=== PATIENT | male | born 1930 | race Caucasian/White ===

== ENCOUNTER 2017-05-31 04:16 | Inpatient (IN) | payer OTHER, MEDICARE ==
[~2017-05-31] VITALS: Ht 170.2 cm; Wt 79.0 kg
--- NOTE | 2017-05-31 04:27 | ED SYNCOPE COMPLAINT ---
See Addendum History of Present Illness General Chief Complaint: Fall Stated Complaint: FALLS Source: patient, family, EMS Exam Limitations: no limitations Vital Signs & Intake/Output Vital Signs & Intake/Output Vital Signs Date Time Temp Pulse Resp B/P B/P Pulse O2 O2 Flow FiO2 Mean Ox Delivery Rate 05/31 0941 97.5 62 16 120/64 100 Room Air 05/31 0617 97.7 61 18 127/60 100 Room Air 05/31 0432 97 Room Air 05/31 0420 97.6 69 20 157/74 99 Room Air Allergies Coded Allergies: Penicillins (Severe, ANAPHYLAXIS 05/31/17) Sulfa (Sulfonamide Antibiotics) (Severe, ANAPHYLAXIS 05/31/17) procaine (Severe, ANAPHYLAXIS 05/31/17) clarithromycin (From BIAXIN) (Intermediate, ANAPHYLAXIS 05/31/17) levofloxacin (From LEVAQUIN) (Intermediate, ANAPHYLAXIS 05/31/17) prochlorperazine (From COMPAZINE) (ANAPHYLAXIS 05/31/17) Reconcile Medications Aspirin (Ecotrin*) 81 MG TABLET.DR 1 TAB PO DAILY HEART HEALTH (Reported) Biotin 1,000 MCG TAB.CHEW 1,000 MCG PO DAILY VITAMIN SUPPORT (Reported) Calcitriol 0.25 MCG CAPSULE 1 CAP PO DAILY VITAMIN SUPPORT (Reported) Esomeprazole (Nexium) 40 MG CAPSULE.DR 1 CAP PO DAILY ACID REFLUX (Reported) Finasteride 5 MG TABLET 1 TAB PO DAILY BLADDER HEALTH (Reported) Moexipril HCl 7.5 MG TABLET HIGH BLOOD PRESSURE (Reported) Psyllium Husk (Metamucil) (Unknown Strength) CAPSULE (Unknown Dose) BOWEL HEALTH (Reported) Rosuvastatin Calcium (Crestor) 10 MG TABLET 1 TAB PO DAILY HIGH CHOLESTROL ( Reported) Tamsulosin HCl 0.4 MG CAP.ER.24H 1 CAP PO DAILY BLADDER HEALTH (Reported) Ubidecarenone (Co Q-10) 100 MG CAPSULE 100 MG PO DAILY VITAMIN SUPPORT ( Reported) Triage Note: JAMEY FROM [facility]. PT HAD COLONOSCOPY LAST WEDNESDAY AND HAS FALLEN FOUR TIMES SINCE. PT REPORTS THAT HE GOT UP TO USE BATHROOM AND " THE NEXT THING I KNEW I WAS ON THE FLOOR". PT DENEIS CP/SOB OR PAIN IN GENERAL. PT HAS SMALL SKIN TEAR TO LEFT HAND. DR PANTOJA IN ROOM. Triage Nurses Notes Reviewed? yes HPI: Patient had a colonoscopy on Wednesday with a polypectomy. Patient has been feeling very weak and fatigue since then. Patient has had 4 syncopal episodes since getting home on Wednesday. This morning patient remembers getting up to go to the bathroom and then feeling very lightheaded. His states that he had a witnessed syncopal episode and he fell and hit his head on the floor. states that he was unresponsive for a few minutes. Patient denies any chest pain or palpitations. There is no nausea or vomiting. states that this is the longest syncopal episode that he's had so far so she became concerned and brought him in for evaluation. (Lázaro NGUYỄN,Jazmyne Al) Past History Travel History Traveled to [place] past 21 day No Medical History Any Pertinent Medical History? see below for history Cardiovascular: hypertension, hyperlipidemia Gastrointestinal: GERD Renal: STAGE 3 RENAL DISEASE Surgical History Surgical History: non-contributory Psychosocial History Tobacco Use: Never used ETOH Use: denies use Illicit Drug Use: denies illicit drug use Family History Hx Contributory? No (Lázaro NGUYỄN,Jazmyne Al) Review of Systems Review of Systems Constitutional: Reports: see HPI, weakness. EENTM: Reports: no symptoms. Respiratory: Reports: no symptoms. Cardiovascular: Reports: no symptoms. GI: Reports: no symptoms. Genitourinary: Reports: no symptoms. Musculoskeletal: Reports: no symptoms. Skin: Reports: no symptoms. Neurological/Psychological: Reports: no symptoms. All Other Systems: Reviewed and Negative (Lázaro NGUYỄN,Jazmyne Al) Physical Exam Physical Exam General Appearance: well developed/nourished, alert, awake, anxious, mild distress Head: atraumatic, normal appearance Eyes: Bilateral: PERRL, EOMI. Ears, Nose, Throat: normal pharynx, DRY MUCUS MEMBRANES Neck: normal inspection, supple, full range of motion, no midline tenderness Respiratory: normal breath sounds, chest non-tender, no respiratory distress, lungs clear Cardiovascular: regular rate/rhythm, normal peripheral pulses, systolic murmur Gastrointestinal: normal bowel sounds, soft, non-tender, no organomegaly Back: normal inspection, normal range of motion Extremities: normal inspection, normal capillary refill, normal range of motion, no edema Psychiatric: awake, alert, oriented x 3 Cranial Nerves: normal hearing, normal speech, PERRL Coordination/Gait: normal finger to nose Motor/Sensory: no motor/sensory deficits Skin: intact, normal color, warm/dry Core Measures ACS in differential dx? Yes CVA/TIA Diagnosis: No Sepsis Present: No Sepsis Focused Exam Completed? No (Lázaro NGUYỄN,Jazmyne Al) Progress Differential Diagnosis: AMI, drug induced syncope, orthostatic syncope, pulmonary embolus, sick sinus syndrome, vasodepressor syncope, ventricular tach/ fib Plan of Care: Orders Procedure Date/time Status Clear Liquid Diet 05/31 D Active Misc Message 05/31 112 Active ED Holding Orders 05/31 1126 Active Vital Signs 05/31 1126 Active Code Status 05/[address] in observation 05/31 112 Active Straight Cath 05/31 112 Active Add-on Test (ER Only) 05/31 0617 Active LACTIC ACID 05/31 0439 Complete Telemetry/Broadcast Chief Engineer 05/31 425 Active URINALYSIS 05/31 042 Active TROPONIN LEVEL 05/31 042 Complete MAGNESIUM 05/31 425 Complete COMPREHENSIVE METABOLIC PANEL 05/31 425 Complete CBC WITHOUT DIFFERENTIAL 05/31 425 Complete EKG 05/31 0421 Active Laboratory Tests 05/31/17 0916: Lactic Acid Cancelled 05/31/17 0616: Lactic Acid Cancelled 05/31/17 0439: Anion Gap 13, Estimated GFR 26 L, BUN/Creatinine Ratio 17.9, Glucose 115 H, Lactic Acid 0.9, Calcium 11.3 H, Magnesium 1.6, Total Bilirubin 0.5, AST 11 L, ALT 24, Alkaline Phosphatase 37, Troponin I < 0.01, Total Protein 6.1 L, Albumin 3.8, Globulin 2.3, Albumin/Globulin Ratio 1.7, CBC w Diff NO MAN DIFF REQ, RBC 3.89 L, MCV 89.1, MCH 29.7, MCHC 33.3, RDW 14.4, MPV 8.1, Gran % 64.0, Lymphocytes % 25.7, Monocytes % 6.5, Eosinophils % 3.4, Basophils % 0.4, Absolute Granulocytes 5.0, Absolute Lymphocytes 2.0, Absolute Monocytes 0.5, Absolute Eosinophils 0.3, Absolute Basophils 0 Diagnostic Imaging: Viewed by Me: Radiology Read, CT Scan. Discussed w/RAD: Radiology Read, CT Scan. Radiology Impression: PATIENT: KAELYN BARFIELD PRESENT AGE: 86 PATIENT ACCOUNT NO: [id number] : 32 LOCATION: ER ORDERING PHYSICIAN: Jazmyne Pantoja MD SERVICE DATE: 05/31/17 EXAM TYPE: CAT - CT CERV SPINE WO IV CONTRAST; CT HEAD WO IV CONTRAST EXAMINATIONS: CT HEAD WITHOUT CONTRAST AND CT CERVICAL SPINE WITHOUT CONTRAST CLINICAL INFORMATION: Pain after fall. Trauma to head and neck. COMPARISON: None. TECHNIQUE: Contiguous helical images of the brain were obtained without IV contrast. Contiguous helical images of the cervical spine were obtained without IV contrast. Multiplanar reconstructions were performed. DLP: 984 mGy-cm. FINDINGS: There are no pathologic extra-axial fluid collections. The lateral, third, fourth ventricles are prominent, though age-appropriate and concordant with the appearance of the sulci. There is no evidence for acute intraparenchymal hemorrhage or infarct. There is neither mass nor mass effect. There is no shift of midline structures. There is mild ethmoid sinus opacification and soft tissue opacification within the sphenoid sinus which could correspond to a mucus retention cyst or polyp The paranasal sinuses and mastoid air cells are otherwise clear. There are no osseous lesions. The cervical vertebra are in normal alignment. Disc heights and vertebral heights are well-preserved. There are no fractures. There is no prevertebral soft tissue swelling. There is no cervical lymphadenopathy. The visualized lung apices are clear. IMPRESSION: No evidence for acute intracranial injury. Age-appropriate appearance of the brain. Paranasal sinus disease as stated above. No evidence for acute injury to the cervical spine. DICTATED BY: Jose Michael MD DATE/TIME DICTATED:05/31/17506 NURSING CARE PARTNER:AVILA DATE/TIME TRANSCRIBED:506 CONFIDENTIAL, DO NOT COPY WITHOUT APPROPRIATE AUTHORIZATION. < Electronically signed in Other Vendor System> SIGNED BY: Jose Michael MD 05/31/17 1148 CXR Impression: PATIENT: KAELYN BARFIELD PRESENT AGE: 86 PATIENT ACCOUNT NO: [id number] : 32 LOCATION: [facility] ORDERING PHYSICIAN: Jazmyne Pantoja MD SERVICE DATE: 05/31/17 EXAM TYPE: RAD - XRY-PORTABLE CHEST XRAY EXAMINATION: CHEST 1 VIEW CLINICAL INFORMATION: Chest pain. COMPARISON: None. TECHNIQUE: An AP view of the chest is provided. FINDINGS : The cardiac silhouette is not enlarged. The mediastinal and hilar contours are unremarkable. There are neither pleural effusions nor pneumothoraces. There are no consolidations. There is elevation to the right hemidiaphragm with mild right lower lobe atelectasis. The osseous structures are unremarkable. IMPRESSION: No consolidations. Mild atelectasis at the right lung base. DICTATED BY: Jose Michael MD DATE/TIME DICTATED:05/31/17506 NURSING CARE PARTNER:AVILA DATE/TIME TRANSCRIBED:05/31/17506 CONFIDENTIAL, DO NOT COPY WITHOUT APPROPRIATE AUTHORIZATION. <Electronically signed in Other Vendor System> SIGNED BY: Jose Michael MD 05/31/17 0511 Pre-Hospital EKG: BIFASICULAR BLOCK Initial ED EKG: BIFASICULAR BLOCK, NO OLD TO COMPARE Rhythm Strip: normal sinus rhythm Hand-Off Endorsed To: Efrain Nelson MD Endorsed Time: 710 Pending: CT (Jazmyne Pantoja MD) Comments: 05/31/17 07:10 patient signed out to me by Dr. Pantoja at shift price changer. 05/31/2017 10:49:36 AM per md trust manager assistant, prelim: diverticular disease of colon, mild pericolonic fat stranding, mid to prox sigmoid, findings could be early diverticulitis or colitis, clinical correlation. filling defect in duodenum, question polyp, ca in bladder, question bladder stones. 05/31/2017 11:13:10 AM I have updated Dr. Xie on the formal reading now posted to the system. He feels that the patient's possible early diverticulitis can be treated with oral antibiotics and no change in the previous care plan for observation stay necessary. (Efrain Nelson MD) Departure Departure Disposition: STILL A PATIENT Condition: Stable Departure Forms: Customer Survey General Discharge Information Observation Note Spoke With: Jose Xie MD Physician Advisor Notified: JAZMYNE PANTOJA MD Place Patient In: Non-ED OBS Care Area Rationale for Observation: My rational for observation is as follows [TELE OBS, SERIAL ENZYMES, IV HYDRATION, CARDIOLOGY CONSULTATION]. (Jazmyne Pantoja MD) Departure Clinical Impression Primary Impression: Syncope Qualifiers: Syncope type: unspecified Qualified Code: R55 - Syncope and collapse Secondary Impressions: Lower abdominal pain, unspecified (Leslie NGUYỄN,Efrain Fry)
[2017-05-31] MEDS ORDERED: NEXIUM40 M1 PO (04:45)
[2017-05-31] MEDS ORDERED: CRESTOR10 M1 PO (04:46)
[2017-05-31] MEDS ORDERED: MOEXIPRIL HCL7.5 MG PO (04:46)
[2017-05-31] MEDS ORDERED: FINASTERIDE5 M1 PO (04:48)
[2017-05-31] MEDS ORDERED: TAMSULOSIN HCL0.4 M1 PO (04:48)
[2017-05-31] MEDS ORDERED: CALCITRIOL0.25 MC1 PO (04:49)
[2017-05-31] MEDS ORDERED: CO Q-10100 MG PO (04:50)
[2017-05-31] MEDS ORDERED: ASPIRIN EC81 M1 PO (04:51)
[2017-05-31] MEDS ORDERED: BIOTIN1000 MC1 PO (04:52)
[2017-05-31] MEDS ORDERED: METAMUCIL0.4 GM PO (04:52)
[2017-05-31 04:53] LABS: ABSOLUTE BASOPHIL COUNT 0 /CUMM (0.0-0.2); ABSOLUTE EOSINOPHIL COUNT 0.3 /CUMM (0.0-0.7); ABSOLUTE MONOCYTE COUNT 0.5 /CUMM (0.10-0.60); BASOPHIL % 0.4 % (0.0-2.0); EOSINOPHIL % 3.4 % (0-5); HEMATOCRIT 34.7 % (42-52); MEAN CORPUSCULAR HGB 29.7 PG (27.0-31.0); MEAN CORPUSCULAR HGB CONC 33.3 G/DL (33.0-37.0); MEAN CORPUSCULAR VOLUME 89.1 FL (80.0-94.0); MEAN PLATELET VOLUME 8.1 FL (7.4-10.4); PLATELET COUNT 252 /CUMM (130-400); RBC DISTRIBUTION WIDTH 14.4 % (11.5-14.5); RED BLOOD CELL CT 3.89 /CUMM (4.70-6.10); WHITE BLOOD CELL COUNT 7.9 /CUMM (4.8-10.8)
--- NOTE | 2017-05-31 05:11 | RADIOLOGY REPORT ---
EXAMINATION: CHEST 1 VIEW CLINICAL INFORMATION: Chest pain. COMPARISON: None. TECHNIQUE: An AP view of the chest is provided. FINDINGS: The cardiac silhouette is not enlarged. The mediastinal and hilar contours are unremarkable. There are neither pleural effusions nor pneumothoraces. There are no consolidations. There is elevation to the right hemidiaphragm with mild right lower lobe atelectasis. The osseous structures are unremarkable. IMPRESSION: No consolidations. Mild atelectasis at the right lung base.
--- NOTE | 2017-05-31 05:30 | CT SCAN REPORT ---
EXAMINATIONS: CT HEAD WITHOUT CONTRAST AND CT CERVICAL SPINE WITHOUT CONTRAST CLINICAL INFORMATION: Pain after fall. Trauma to head and neck. COMPARISON: None. TECHNIQUE: Contiguous helical images of the brain were obtained without IV contrast. Contiguous helical images of the cervical spine were obtained without IV contrast. Multiplanar reconstructions were performed. DLP: 984 mGy-cm. FINDINGS: There are no pathologic extra-axial fluid collections. The lateral, third, fourth ventricles are prominent, though age-appropriate and concordant with the appearance of the sulci. There is no evidence for acute intraparenchymal hemorrhage or infarct. There is neither mass nor mass effect. There is no shift of midline structures. There is mild ethmoid sinus opacification and soft tissue opacification within the sphenoid sinus which could correspond to a mucus retention cyst or polyp The paranasal sinuses and mastoid air cells are otherwise clear. There are no osseous lesions. The cervical vertebra are in normal alignment. Disc heights and vertebral heights are well-preserved. There are no fractures. There is no prevertebral soft tissue swelling. There is no cervical lymphadenopathy. The visualized lung apices are clear. IMPRESSION: No evidence for acute intracranial injury. Age-appropriate appearance of the brain. Paranasal sinus disease as stated above. No evidence for acute injury to the cervical spine.
--- NOTE | 2017-05-31 10:56 | CT SCAN REPORT ---
EXAMINATION: CT ABDOMEN AND PELVIS WITH CONTRAST CLINICAL INFORMATION: Abdominal pain, recent colonoscopy and polypectomy. COMPARISON: None TECHNIQUE: Multidetector volumetric imaging was performed from the superior aspect of the liver through the pubic symphysis following administration of oral contrast. Sagittal and coronal reformatted images were obtained on the technologist's workstation. DLP: 448.63 mGy-cm FINDINGS: LUNG BASES: There is elevation of the right diaphragm with adjacent atelectasis of the pulmonary parenchyma. No pleural effusion. LIVER, GALLBLADDER, AND BILIARY TREE: The liver is normal in size, shape, and attenuation. There is a 1.1 cm hypodense lesion at the dome of liver with adjacent calcification, likely a hepatic granuloma. No biliary ductal dilatation is present. The gallbladder is absent, likely due to prior cholecystectomy. PANCREAS: Unremarkable SPLEEN: Unremarkable ADRENAL GLANDS: Unremarkable KIDNEYS AND URETERS: The kidneys are normal in size, shape, and attenuation. No hydronephrosis, hydroureter, or calculi seen. There are small, bilateral hypodense renal cortical lesions. The largest one measures about 1.7 cm and is located in the lower pole of the left kidney. The density of the largest one is about 8 Hounsfield units and represents a renal cyst. No perinephric stranding. BLADDER: The urinary bladder is slightly over-distended. There are 2 adjacent 2-3 mm calcific densities on the right side of bladder base, which could represent bladder stones. The finding is better seen on axial image 693 from series 3 and sagittal image 69. GASTROINTESTINAL TRACT: A moderate-sized hiatal hernia which contains the oral contrast is noted. The stomach is mildly distended and unremarkable. There is a 1.1 cm soft tissue density causing filling defect in the C portion of the duodenum, better seen on coronal image 51 and axial image 250 from series 3. The small bowel loops are not dilated. The colon is not dilated. Diverticular disease of the sigmoid colon and left colon noted. There is mild pericolonic fat stranding in the mid sigmoid colon, better seen on coronal image 31. Axial image 491 from series 3 and sagittal image 67. There are adjacent diverticuli, however no abnormal thickening of the wall of colon noted. Findings could represent changes of early acute diverticulitis/colitis. No free air or free fluid in the abdomen or pelvis. ABDOMINAL WALL: No significant hernia is appreciated. LYMPH NODES: Normal. VASCULAR: Atherosclerotic calcifications of the abdominal aorta noted. No aneurysmal dilatation. PELVIC VISCERA: The prostate and seminal vesicles are unremarkable. OSSEOUS STRUCTURES: No aggressive bony lesions or acute bone fracture. IMPRESSION: Diverticular disease of the sigmoid colon and descending colon noted. Mild pericolonic fat stranding in the region of the proximal to mid sigmoid colon without definite abnormal wall thickening noted. Findings could represent changes of early acute diverticulitis/colitis. Clinical correlation is suggested. No free air or fluid in the abdomen or pelvis. Filling defect in the C portion of the duodenum could represent polyp. Clinical correlation is suggested. Small calcific densities in the urinary bladder could represent urinary stones. This can be further evaluated by ultrasound of the full bladder if clinically indicated.
--- NOTE | 2017-05-31 13:00 | History & Physical ---
General Information and [facility] MD Statement: I have seen and personally examined KAELYN BARFIELD and documented this H&P. The patient is a 86 year old M who presented with a patient stated chief complaint of [fall]. Source of Information: patient, family Exam Limitations: no limitations History of Present Illness: Patient is an 86-year-old male BIBA from home, after episode of falls. According to the patient, he had colonoscopy preparation on , and afterwards he was very weak and underwent colonoscopy on Wednesday morning. After colonoscopy he had 4 episodes of fall, and most of the fall happened when he started urination. According to him he has hesitation and delay in start and sometimes he need to strain while urination. In the past he was told to have TURP but he refused for it. He denies for any nausea, vomiting, palpitation, headache, chest pain, shortness of breath before and loss of consciousness afterward. Today in the morning when he fell, he hit his head and the back of the neck, and become an unaware of surrounding for around 5 minutes. According to the he was having difficulty in breathing, drooling of saliva and was not responding for a couple of minutes that is why she called 911. He was staining the urination but not sure was it due to loss of control or he urinate. Of note patient is undergoing regular colonoscopy every 3 years, because he was found to have 1 polyp though it was not malignant. After his bilateral knee replacement in April 2016 he has tendency to fall on the right side, and which got worst after his colonoscopy preparation. He denies for using any cane/walker as a baseline. 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, right-sided dry History of diverticulitis Personal history -lives at home, able to do all his daily activity without any assistance, does not use cane or walker, quit alcohol 40-50 years, quit smoking 1969, denies illicit drug abuse Surgical history - history of bilateral knee replacement in April 2016 Cholecystectomy Appendicectomy History of sinus polypectomy Family history - Mother -history of renal cancer Father of heart attack PCP-Arsenio Crenshaw MD Gastroenterology - Efrain Spangler Allergies/Medications Allergies: Coded Allergies: Penicillins (Severe, ANAPHYLAXIS 05/31/17) Sulfa (Sulfonamide Antibiotics) (Severe, chest pain 05/31/17) procaine (Severe, ANAPHYLAXIS 05/31/17) clarithromycin (From BIAXIN) (Intermediate, COUGHING/GI upset 05/31/17) after he had paralysis of right side of diahragm levofloxacin (From LEVAQUIN) (Intermediate, ANAPHYLAXIS 05/31/17) prochlorperazine (From COMPAZINE) (ANAPHYLAXIS 05/31/17) Home Med list Aspirin (Ecotrin*) 81 MG TABLET.DR 1 TAB PO DAILY HEART HEALTH (Reported) Biotin 1,000 MCG TAB.CHEW 1,000 MCG PO DAILY VITAMIN SUPPORT (Reported) Calcitriol 0.25 MCG CAPSULE 1 CAP PO DAILY VITAMIN SUPPORT (Reported) Esomeprazole (Nexium) 40 MG CAPSULE.DR 1 CAP PO DAILY ACID REFLUX (Reported) Finasteride 5 MG TABLET 1 TAB PO DAILY BLADDER HEALTH (Reported) Moexipril HCl 7.5 MG TABLET HIGH BLOOD PRESSURE (Reported) Psyllium Husk (Metamucil) (Unknown Strength) CAPSULE (Unknown Dose) BOWEL HEALTH (Reported) Rosuvastatin Calcium (Crestor) 10 MG TABLET 1 TAB PO DAILY HIGH CHOLESTROL ( Reported) Tamsulosin HCl 0.4 MG CAP.ER.24H 1 CAP PO DAILY BLADDER HEALTH (Reported) Ubidecarenone (Co Q-10) 100 MG CAPSULE 100 MG PO DAILY VITAMIN SUPPORT ( Reported) Past History Travel History Traveled to [place] past 21 day No Medical History Neurological: NONE EENT: macular degeneration Cardiovascular: hypertension, hyperlipidemia Respiratory: NONE Gastrointestinal: GERD Hepatic: NONE Renal: STAGE 3 RENAL DISEASE Musculoskeletal: falls, osteoarthritis Psychiatric: NONE Endocrine: NONE Blood Disorders: NONE Cancer(s): NONE Surgical History Surgical History: non-contributory Past Family/Social History Family History Relations & Conditions if any MOTHER ( of renal cancer). FATHER ( of OR). Psychosocial History ETOH Use: denies use Illicit Drug Use: denies illicit drug use Review of Systems Review of Systems Constitutional: Denies: no symptoms. Exam & Diagnostic Data Last 24 Hrs of Vital Signs/I&O Vital Signs Date Time Temp Pulse Resp B/P B/P Pulse O2 O2 Flow FiO2 Mean Ox Delivery Rate 05/31 0941 97.5 62 16 120/64 100 Room Air 05/31 0617 97.7 61 18 127/60 100 Room Air 05/31 0432 97 Room Air 05/31 0420 97.6 69 20 157/74 99 Room Air Intake & Output 05/31 1600 05/31 0800 05/31 0000 Intake Total 1000 1000 Output Total Balance 1000 1000 Intake, IV 1000 1000 Patient 78.018 kg Weight Weight Reported by Patient Measurement Method Physical Exam General Appearance Alert, Oriented X3, Cooperative, No Acute Distress Cardiovascular Normal S1, Normal S2 Lungs Clear to Auscultation, bilateral basal crackles Abdomen Soft, tenderness in left side Neurological Normal Speech, Strength at 5/5 X4 Ext, Normal Tone, Sensation Intact, Cranial Nerves 3-12 NL, Reflexes 2+ Extremities cold extremeties, posterior pedal was weak , DPS was normal Vascular Normal Pulses, Pulses Symmetrical Last 24 Hrs of Labs/Steve: Laboratory Tests 05/31/17 0916: Lactic Acid Cancelled 05/31/17 0616: Lactic Acid Cancelled 05/31/17 0439: Anion Gap 13, Estimated GFR 26 L, BUN/Creatinine Ratio 17.9, Glucose 115 H, Lactic Acid 0.9, Calcium 11.3 H, Magnesium 1.6, Total Bilirubin 0.5, AST 11 L, ALT 24, Alkaline Phosphatase 37, Troponin I < 0.01, Total Protein 6.1 L, Albumin 3.8, Globulin 2.3, Albumin/Globulin Ratio 1.7, CBC w Diff NO MAN DIFF REQ, RBC 3.89 L, MCV 89.1, MCH 29.7, MCHC 33.3, RDW 14.4, MPV 8.1, Gran % 64.0, Lymphocytes % 25.7, Monocytes % 6.5, Eosinophils % 3.4, Basophils % 0.4, Absolute Granulocytes 5.0, Absolute Lymphocytes 2.0, Absolute Monocytes 0.5, Absolute Eosinophils 0.3, Absolute Basophils 0 Diagnostic Data EKG Results RBBB, HR 66, CXR Results No consolidations. Mild atelectasis at the right lung base. Assessment/Plan Assessment: Patient is an 86-year-old male BIBA from home, after episodes of falls. ED course - Vital signs -temperature 97.6, pulse 69, respiratory 20, blood pressure 157/74, SPO2 99% on room air. Orthostsic vitals - 157/74(lying);120/64 (sitting) EKG -RBBB, HR 66. Blood workup showed - hemoglobin 11.6, hematocrit 34.7 , platelet count 252, sodium 139, potassium 4.5, chloride 102, anion gap 13, BUN 43, creatinine 2.4, GFR 26, glucose 115, lactic acid 0.9, calcium 11.3, magnesium 1.6, AST 11, ALT 24, alkaline phosphatase 37, troponin less than 0.01,total protein 6.1, albumin 3.8, globulin 2.3. CT Scan Head- No evidence for acute intracranial injury. Age-appropriate appearance of the brain CXR -No consolidations. Mild atelectasis at the right lung base. CT scan of Cevical Spine -The cervical vertebra are in normal alignment. Disc heights and vertebral heights are well-preserved. There are no fractures. There is no prevertebral soft tissue swelling. CT abdoman and pelvis -Diverticular disease of the sigmoid colon and descending colon noted. Mild pericolonic fat stranding in the region of the proximal to mid sigmoid colon without definite abnormal wall thickening noted. Findings could represent changes of early acute diverticulitis/colitis. Colonoscopy(05/28/2017) - * Diverticulosis in the sigmoid/descending colon /transverse colon * One diminutive polyp is in the distal transverse colon * external and internal hemorrhoids EKG (10/06/2016) - RBBB, HR -68. 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 History of diverticulitis and CT abdomen was showing perinephric stranding * We will watch off antibiotics, if symptoms get worse than we will get ID consult( ceftriaxon and [facility]) Hypercalcemia -baseline Ca was 9.8(04/26/2017) * we will hold VitD/Calcium supplementation * we will hydrate the patient on IV fluids * we will recheck the calcium level * We will get the records from the primary care provider and if there is no PTH level then will check for the PTH level Type 2 diabetes - * Fingerstick 3 times daily/at bedtime * Carbohydrate type II diet Chronic medical condition -hypertension, hyperlipidemia, GERD * we will continue tab minoxipril, Crestor, omeprazole, Aspirin CODE STATUS -full code DVT prophylaxis - SUGAR/heparin Diet -carbohydrate type II diet As Ranked By This Provider Problem List: 1. Syncope Qualifiers Syncope type: unspecified Qualified Code: R55 - Syncope and collapse 2. Fall 3. Prediabetes Core Measures/Misc (11/22) Acute Coronary Syndrome ACS Diagnosis: No Congestive Heart Failure Congestive Heart Failure Diagnosis No Cerebrovascular Accident CVA/TIA Diagnosis: No VTE (View Protocol) VTE Risk Factors Age>40 No Mechanical VTE Prophylaxis d/t N/A MechProphylax Ordered No VTE Pharm Prophylaxis d/t NA PharmProphylax ordered Sepsis (View protocol) Sepsis Present: No
--- NOTE | 2017-05-31 14:50 | Admission Certification ---
Admission Certification Certification Statement - As attending physician, I certify that at the time of - admission, based on clinical presentation, severity of - symptoms, need for further diagnostic testing and - therapeutic interventions, and risk of adverse outcomes - without in-hospital treatment, in my clinical assessment, - this patient requires an acute hospital stay for a minimum - of two nights or longer. I have also considered psychsocial - factors such as support system, advanced age, financial - issues, cognitive issues, and failed out-patient treatments, - past re-admission history, safety of patient, and lack of - compliance as applicable. Specific rationale supporting this admission is: multiple syncopal episodes
--- NOTE | 2017-05-31 14:56 | PN- Att Addend ---
Attending Addendum Attending Brief Note Patient seen and examined. Plan of care discussed with the medical team and the patient. Available lab work and radiology test reports were reviewed. Please see resident's history physical for more details. In summary patient is 86-year -old male with past history of hypertension hyperlipidemia BPH who recently underwent a colonoscopy last Wednesday. Patient will drained afterwards and over the next 48 hours had 4 episodes of syncope associated with fall and without any preceding warning. also reports that patient has been drifting while walking and patient the reports that he cannot walk straight. Patient denies any palpitations sweating and nausea vomiting chest pain abdominal pain. No recent fever or chills have been reported. Exam: General: Patient awake alert oriented without any distress CVS: S1 plus S2 without any murmur or gallops Chest: Few scattered crepitation without any wheeze. There is no respiratory distress. Abdomen: Soft non-tender, bowel sound present, no guarding or rebound COMMUN[employer] MARKETING COORDINATOR: Awake alert oriented without any focal neuro deficit except for left the flattened nasolabial fold; follows commands appropriately; cerebellar exam intact Extremities: No edema; no clubbing or cyanosis noted Assessment * Multiple episodes of syncope with loss of consciousness- deferential included Wizard of syncope, seizure disorder, stroke and arrhythmia * Hypercalcemia * History of hypertension * History of hyperlipidemia * History of BPH * History is reflux * Stage III chronic renal failure * Bilateral knee replacement * 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 Plan * Admit to telemetry * Hold Calcitrol * Recheck calcium level * Hydrate slowly with 75 mL per hour for 1-2 L * Check orthostatic BP * Check troponin 3 sets * Check MRI brain to rule out stroke * Obtain old records * Check intact PTH if not done as outpatient * CT of the abdomen report some stranding around the sigmoid colon patient clinically does not appear to have diverticulitis therefore will not treat and will watch off antibiotics Current Medications Sig/Seth Start time Last Medication Dose Route Stop Time Status Admin Acetaminophen 0 .STK-MED ONE 05/31 06 DC IV Acetaminophen 1,000 MG ONCE ONE 05/31 0600 DC 05/31 N/A 1 UNIT IV 05/31 613 0627 Aspirin Buffered 81 MG DAILY 06/01 1000 AC PO Atorvastatin Calcium 10 MG 1700 05/31 1700 AC PO Finasteride 5 MG DAILY 06/01 1000 AC PO Pantoprazole Sodium 40 MG DAILY 06/01 1000 AC IV Sodium Chloride 1,000 ML Q13H 05/31 1315 AC IV Sodium Chloride 1,000 ML BOLUS ONE 05/31 0600 DC 05/31 IV 05/31 0659 06 Tamsulosin HCl 0.4 MG DAILY 06/01 1000 AC PO Laboratory Tests 05/31/17 1402: Urine Color YEL, Urine Clarity CLEAR, Urine pH 6.0, Ur Specific [place] 1.010, Urine Protein NEG, Urine Ketones NEG, Urine Nitrite NEG, Urine Bilirubin NEG, Urine Urobilinogen 0.2, Ur Leukocyte Esterase NEG, Ur Microscopic EXAM NOT REQUIRED, Urine Hemoglobin NEG, Urine Glucose NEG 05/31/17 0916: Lactic Acid Cancelled 05/31/17 0616: Lactic Acid Cancelled 05/31/17 0439: Anion Gap 13, Estimated GFR 26 L, BUN/Creatinine Ratio 17.9, Glucose 115 H, Hemoglobin A1c Pending, Lactic Acid 0.9, Calcium 11.3 H, Magnesium 1.6, Total Bilirubin 0.5, AST 11 L, ALT 24, Alkaline Phosphatase 37, Troponin I < 0.01, Total Protein 6.1 L, Albumin 3.8, Globulin 2.3, Albumin/Globulin Ratio 1.7, PTH Intact 6.9 L, CBC w Diff NO MAN DIFF REQ, RBC 3.89 L, MCV 89.1, MCH 29.7, MCHC 33.3, RDW 14.4, MPV 8.1, Gran % 64.0, Lymphocytes % 25.7, Monocytes % 6.5, Eosinophils % 3.4, Basophils % 0.4, Absolute Granulocytes 5.0, Absolute Lymphocytes 2.0, Absolute Monocytes 0.5, Absolute Eosinophils 0.3, Absolute Basophils 0 Vital Signs Date Time Temp Pulse Resp B/P B/P Pulse O2 O2 Flow FiO2 Mean Ox Delivery Rate 05/31 1402 97.8 75 18 131/74 98 Room Air 05/31 0941 97.5 62 16 120/64 100 Room Air 05/31 0617 97.7 61 18 127/60 100 Room Air 05/31 0432 97 Room Air 05/31 0420 97.6 69 20 157/74 99 Room Air Intake & Output 05/31 1600 05/31 0800 05/31 0000 Intake Total 1000 1000 Output Total 300 Balance 700 1000 Intake, IV 1000 1000 Output, Urine 300 Patient 172 lb Weight Weight Reported by Patient Measurement Method CT head and spine No evidence for acute intracranial injury. Age-appropriate appearance of the brain. Paranasal sinus disease as stated above. No evidence for acute injury to the cervical spine. CT abdomen and pelvis Diverticular disease of the sigmoid colon and descending colon noted. Mild pericolonic fat stranding in the region of the proximal to mid sigmoid colon without definite abnormal wall thickening noted. Findings could represent changes of early acute diverticulitis/colitis. Clinical correlation is suggested. No free air or fluid in the abdomen or pelvis. Filling defect in the C portion of the duodenum could represent polyp. Clinical correlation is suggested. Small calcific densities in the urinary bladder could represent urinary stones. This can be further evaluated by ultrasound of the full bladder if clinically indicated.
[2017-05-31 15:35] VITALS: BP 122/66
[2017-05-31 16:00] VITALS: BP 124/68
--- NOTE | 2017-05-31 17:05 | MRI REPORT ---
EXAMINATION: MR BRAIN WITHOUT CONTRAST CLINICAL INFORMATION: Leaning left side. Question stroke. COMPARISON: CT head 05/31/2017. TECHNIQUE: MRI of the brain without contrast was obtained using routine sequences. FINDINGS: There are scattered nonspecific foci of T2 FLAIR signal hyperintensity within the periventricular white matter that most likely represent a chronic manifestation of small vessel ischemia. No acute territorial infarct. No pathological magnetic susceptibility artifact. There is no intracranial mass effect or midline shift. No abnormal extra axial collection. Lateral and third ventricles are proportionate to the subarachnoid spaces. No hydrocephalus. Midline structures including the cervicomedullary junction are normal. Bone marrow signal intensity is normal. There are trace bilateral mastoid tip effusions. Mild to moderate paranasal sinus disease. Globes and orbits are symmetric. IMPRESSION: There are scattered chronic small vessel ischemic changes within the periventricular white matter. No evidence of acute territorial infarct or hemorrhage.
[2017-05-31 21:48] VITALS: BP 136/62
[2017-06-01 07:02] VITALS: BP 138/68
--- NOTE | 2017-06-01 07:35 | PN- Housestaff ---
Subjective Follow-up For: Recurrent syncope Subjective: Seen and examined Patient remains stable. Unable to sleep due to new bed. He did report 3/4 syncopal episodes happened during urination. A bedside postvoidal residual volume was done - 245ml. Informed patient and family at bedside that this could be vasovagal syncope and urology consulted Review of Systems Constitutional: Reports: see HPI. Objective Last 24 Hrs of Vital Signs/I&O Vital Signs Date Time Temp Pulse Resp B/P B/P Pulse O2 O2 Flow FiO2 Mean Ox Delivery Rate 06/01 0702 98.3 77 18 138/68 97 Room Air 05/31 2148 98.7 67 18 136/62 98 Room Air 05/31 1600 98.0 76 16 124/68 98 Room Air 05/31 1535 98.7 76 18 122/66 97 05/31 1402 97.8 75 18 131/74 98 Room Air 05/31 0941 97.5 62 16 120/64 100 Room Air Intake & Output 06/01 0800 06/01 0000 05/31 1600 Intake Total 933 904 0631 Output Total 675 250 300 Balance -555 -10 900 Intake, IV 1000 Intake, Oral 120 240 200 Number 0 0 Bowel Movements Output, Urine 675 250 300 Patient 80.229 kg 80.031 kg Weight Weight Bed scale Measurement Method Physical Exam General Appearance: Alert, Oriented X3, Cooperative Skin: No Rashes, No Breakdown Skin Temp/Moisture Exam: Warm/Dry HEENT: Atraumatic, PERRLA, EOMI Neck: Supple Cardiovascular: Normal S1, Normal S2, systolic murmur present Lungs: Clear to Auscultation, Normal Air Movement Abdomen: Normal Bowel Sounds, Soft, No Tenderness Neurological: Normal Gait, Normal Speech, Strength at 5/5 X4 Ext, Normal Tone, Sensation Intact Extremities: No Clubbing, No Cyanosis, No Edema Vascular: Normal Pulses Current Medications: Current Medications Sig/Seth Start time Last Medication Dose Route Stop Time Status Admin Acetaminophen 500 MG .STK-MED ONE 06/01 0741 DC PO 06/01 0742 Acetaminophen 500 MG Q6P PRN 05/31 2330 AC 06/01 PO 0751 Aspirin Buffered 81 MG DAILY 06/01 1000 AC PO Atorvastatin Calcium 10 MG 1700 05/31 1700 AC PO Finasteride 5 MG DAILY 06/01 1000 AC 06/01 PO 0930 Pantoprazole Sodium 40 MG DAILY 06/01 1000 AC 06/01 IV 0930 Sodium Chloride 1,000 ML Q13H 05/31 1315 DC 05/31 IV 2001 Tamsulosin HCl 0.4 MG DAILY 06/01 1000 AC 06/01 PO 0930 Last 24 Hrs of Lab/Steve Results Last 24 Hrs of Labs/Mics: Laboratory Tests 06/01/17 0620: Anion Gap 11, Estimated GFR 34 L, BUN/Creatinine Ratio 17.4, Calcium 10.1, CBC w Diff NO MAN DIFF REQ, RBC 3.55 L, MCV 89.3, MCH 30.0, MCHC 33.6, RDW 14.4, MPV 8.7, Gran % 63.5, Lymphocytes % 21.7, Monocytes % 8.1, Eosinophils % 6.2 H, Basophils % 0.5, Absolute Granulocytes 4.2, Absolute Lymphocytes 1.4, Absolute Monocytes 0.5, Absolute Eosinophils 0.4, Absolute Basophils 0 Assessment/Plan Assessment: Patient is a 86 YO M with PMH significant for HTN, HLD, BPH, GERD, DM (not on medications), Stage 3 CKD, Right-sided diaphragmatic paralysis, Bilateral macular degeneration -left-sided wet, right-sided dry, diverticulitis presented to [place] with recurrent syncopal episodes after recent colonoscopy. Differentials for the syncope are - vasovagal, arrhythmia, stroke, orthostatic Admitted to telemetry floor yesterday Plan Recurrent Syncope Possibly vasovagal in the setting of preload dependence with abdominal straining. 3/4 were during urination although no clear straining. He did have a 245ml of residual volume today. Orthostatic vitals were negative * Urology consult * Cotinue tamsulosin and finasteride for now * Needs cardiology follow up in near furture in the setting of with syncope * Merits neuro if all the work up remain negative given post syncopal confusion for possible seizures * Cotinue statin, patient is refusing Aspirin given recent colonoscopy -- for secondary prevention of stroke Hypercalcemia with DAGO Resolved once hydrated. Recheck tomorrow. Continue other home medications for now DVT prophylaxis SC heparin Code status full code Problem List: 1. Syncope 2. Lower abdominal pain, unspecified 3. Fall Pain Ratin Pain Location: lower abdominal pain Pain Goal: Pain 4 or less Pain Plan: tylenol prn Tomorrow's Labs & Rationales: bep to monitor BUN/Cr and calcium
[2017-06-01 08:18] LABS: ABSOLUTE BASOPHIL COUNT 0 /CUMM (0.0-0.2); ABSOLUTE EOSINOPHIL COUNT 0.4 /CUMM (0.0-0.7); ABSOLUTE GRANULOCYTE CT 4.2 /CUMM (1.4-6.5); ABSOLUTE LYMPH COUNT 1.4 /CUMM (1.2-3.4); ABSOLUTE MONOCYTE COUNT 0.5 /CUMM (0.10-0.60); BASOPHIL % 0.5 % (0.0-2.0); EOSINOPHIL % 6.2 % (0-5); HEMATOCRIT 31.6 % (42-52); MEAN CORPUSCULAR HGB CONC 33.6 G/DL (33.0-37.0); MEAN CORPUSCULAR VOLUME 89.3 FL (80.0-94.0); MEAN PLATELET VOLUME 8.7 FL (7.4-10.4); RBC DISTRIBUTION WIDTH 14.4 % (11.5-14.5); RED BLOOD CELL CT 3.55 /CUMM (4.70-6.10)
[2017-06-01 10:02] LABS: GRANULOCYTE % 63.5 % (42.2-75.2); PLATELET COUNT 216 /CUMM (130-400); WHITE BLOOD CELL COUNT 6.6 /CUMM (4.8-10.8)
--- NOTE | 2017-06-01 12:22 | PN- Att Addend ---
Attending Addendum Attending Brief Note Patient seen and examined. Plan of care discussed with the medical team and the patient. Available lab work and radiology test reports were reviewed. Patient is much better. He is currently awake alert oriented without any distress. Denies any chest pain difficult breathing fever chills nausea vomiting diarrhea. Exam: General: Patient awake alert oriented without any distress CVS: S1 plus S2 without any murmur or gallops Chest: Few scattered crepitation without any wheeze. There is no respiratory distress. 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 Plan * Can DC IV fluids and encourage oral liquids * Check orthostatic BP * Given MRI findings I will start patient on Lipitor and aspirin * Ambulate with assist * Obtain old records * CT of the abdomen report some stranding around the sigmoid colon patient clinically does not appear to have diverticulitis therefore will not treat and will watch off antibiotics * Urology consult Current Medications Sig/Seth Start time Last Medication Dose Route Stop Time Status Admin Acetaminophen 500 MG Q6P PRN 05/31 2330 AC 06/01 PO 0751 Aspirin Buffered 81 MG DAILY 06/01 1000 AC PO Atorvastatin Calcium 10 MG 1700 05/31 1700 AC PO Finasteride 5 MG DAILY 06/01 1000 AC 06/01 PO 0930 Pantoprazole Sodium 40 MG DAILY 06/01 1000 AC 06/01 IV 0930 Sodium Chloride 1,000 ML Q13H 05/31 1315 DC 05/31 IV 2002 Tamsulosin HCl 0.4 MG DAILY 06/01 1000 AC 06/01 PO 0930 Laboratory Tests 06/01/17 0620: Anion Gap 11, Estimated GFR 34 L, BUN/Creatinine Ratio 17.4, Calcium 10.1, CBC w Diff NO MAN DIFF REQ, RBC 3.55 L, MCV 89.3, MCH 30.0, MCHC 33.6, RDW 14.4, MPV 8.7, Gran % 63.5, Lymphocytes % 21.7, Monocytes % 8.1, Eosinophils % 6.2 H, Basophils % 0.5, Absolute Granulocytes 4.2, Absolute Lymphocytes 1.4, Absolute Monocytes 0.5, Absolute Eosinophils 0.4, Absolute Basophils 0 05/31/17 1402: Urine Color YEL, Urine Clarity CLEAR, Urine pH 6.0, Ur Specific [place] 1.010, Urine Protein NEG, Urine Ketones NEG, Urine Nitrite NEG, Urine Bilirubin NEG, Urine Urobilinogen 0.2, Ur Leukocyte Esterase NEG, Ur Microscopic EXAM NOT REQUIRED, Urine Hemoglobin NEG, Urine Glucose NEG 05/31/17 0916: Lactic Acid Cancelled 05/31/17 0616: Lactic Acid Cancelled 05/31/17 0439: Anion Gap 13, Estimated GFR 26 L, BUN/Creatinine Ratio 17.9, Glucose 115 H, Hemoglobin A1c 6.4 H, Lactic Acid 0.9, Calcium 11.3 H, Magnesium 1.6, Total Bilirubin 0.5, AST 11 L, ALT 24, Alkaline Phosphatase 37, Troponin I < 0.01, Total Protein 6.1 L, Albumin 3.8, Globulin 2.3, Albumin/Globulin Ratio 1.7, PTH Intact 6.9 L, CBC w Diff NO MAN DIFF REQ, RBC 3.89 L, MCV 89.1, MCH 29.7, MCHC 33.3, RDW 14.4, MPV 8.1, Gran % 64.0, Lymphocytes % 25.7, Monocytes % 6.5, Eosinophils % 3.4, Basophils % 0.4, Absolute Granulocytes 5.0, Absolute Lymphocytes 2.0, Absolute Monocytes 0.5, Absolute Eosinophils 0.3, Absolute Basophils 0 Vital Signs Date Time Temp Pulse Resp B/P B/P Pulse O2 O2 Flow FiO2 Mean Ox Delivery Rate 06/01 0930 98.3 77 18 138/68 06/01 0702 98.3 77 18 138/68 97 Room Air 05/31 2148 98.7 67 18 136/62 98 Room Air 05/31 1600 98.0 76 16 124/68 98 Room Air 05/31 1535 98.7 76 18 122/66 97 05/31 1402 97.8 75 18 131/74 98 Room Air Intake & Output 06/01 1600 06/01 0800 06/01 0000 Intake Total 120 440 Output Total 675 250 Balance -555 190 Intake, Oral 120 440 Number 0 0 Bowel Movements Output, Urine 675 250 Patient 173 lb 177 lb Weight Weight Bed scale Bed scale Measurement Method MRI There are scattered chronic small vessel ischemic changes within the periventricular white matter. No evidence of acute territorial infarct or hemorrhage.
[2017-06-01 14:07] VITALS: BP 130/52
[2017-06-01 22:52] VITALS: BP 118/62
--- NOTE | 2017-06-02 07:05 | PN- Housestaff ---
Subjective Follow-up For: Recurrent syncope Tele-Events Since Last Visit: NSR 62 - 81 Subjective: Mr Ibrahim was seen and examined this morning. Resting comfortably in the chair beside his bed. He has no complaints and states that he was able to get some rest overnight. He feels refreshed this am. He is currently tolerating by mouth intake well. Denies any lightheadedness or any further episodes of syncope. Denies any headache or chest pain. Denies any fever, chills, nausea, vomiting. Denies any dysuria or hesitation or urinary frequency He does endorse that he would like to be discharged today. Review of Systems Constitutional: Reports: see HPI. Objective Last 24 Hrs of Vital Signs/I&O Vital Signs Date Time Temp Pulse Resp B/P B/P Pulse O2 O2 Flow FiO2 Mean Ox Delivery Rate 06/02 0810 74 134/68 06/02 0740 99.2 74 20 134/68 94 Room Air 06/01 2252 97.9 72 20 118/62 96 Room Air Intake & Output 06/02 1600 06/02 0800 06/02 0000 Intake Total 110 400 Output Total 650 275 Balance -540 125 Intake, IV 10 Intake, Oral 100 400 Number 0 Bowel Movements Output, Urine 650 275 Patient 79.01 kg Weight Physical Exam General Appearance: Alert, Oriented X3, Cooperative Cardiovascular: Regular Rate, Normal S1, Normal S2 Lungs: Clear to Auscultation Abdomen: Normal Bowel Sounds, Soft, No Tenderness Neurological: Normal Speech Extremities: No Clubbing, No Cyanosis Current Medications: Current Medications Sig/Seth Start time Last Medication Dose Route Stop Time Status Admin Acetaminophen 500 MG Q6P PRN 05/31 2330 AC 06/01 PO 0751 Aspirin Buffered 81 MG DAILY 06/01 1000 AC PO Atorvastatin Calcium 10 MG 05/31 1700 DC PO Finasteride 5 MG DAILY 06/01 1000 AC 06/02 PO 0810 Heparin Sodium 5,000 UNIT Q8 06/01 2200 AC 06/02 (Porcine) SC 0626 Pantoprazole Sodium 40 MG DAILY 06/01 1000 AC 06/02 IV 0810 Rosuvastatin Calcium 10 MG 1700 06/01 1830 AC 06/01 PO 2117 Tamsulosin HCl 0.4 MG DAILY 06/01 1000 AC 06/02 PO 0810 Last 24 Hrs of Lab/Steve Results Last 24 Hrs of Labs/Mics: Laboratory Tests 06/02/17 0617: Anion Gap 13, Estimated GFR 36 L, BUN/Creatinine Ratio 19.4, Calcium 9.6 Assessment/Plan Assessment: Patient is a 86 YO M with PMH significant for HTN, HLD, BPH, GERD, DM (not on medications), Stage 3 CKD, Right-sided diaphragmatic paralysis, Bilateral macular degeneration -left-sided wet, right-sided dry, diverticulitis presented to [facility] with recurrent syncopal episodes after recent colonoscopy. Differentials for the syncope are - vasovagal, arrhythmia, stroke, orthostatic Currently on telemetry floor Plan Recurrent/Micturation Syncope Possibly vasovagal in the setting of preload dependence (likley due to dehydraion in the setting of colonoscopy prep) with abdominal straining. Orthostatic vitals were negative * Cotinue tamsulosin and finasteride for now * Advised to sit when urinating. * [facility] the [facility] * Cotinue statin, patient is refusing Aspirin given recent colonoscopy -- for secondary prevention of stroke Hypercalcemia with DAGO Calcium on presentation 11.3, calcium this am: 9.6. Recommended to discontinue calcium and deferred to outpatient PCP for further recommendations. This was explained to the patient and his . Continue other home medications for now DVT prophylaxis SC heparin Code status full code Problem List: 1. Syncope Pain Ratin Pain Location: No Pain Pain Goal: Remain pain free Pain Plan: NA Tomorrow's Labs & Rationales: NA
[2017-06-02 07:40] VITALS: BP 134/68
--- NOTE | 2017-06-02 07:55 | Cons- Urology ---
General Information and HPI Consulting Request Date of Consult: 06/02/17 Requested By: Andres NGUYỄN,Yennifer Reason for Consult: ? micturition syncope Source of Information: patient, old records Exam Limitations: no limitations History of Present Illness: This patient was seen several years ago by [facility] due to urinary sx's and TURP was recommended but he declined. He has been taking tamsulosin and finasteride and having moderate urinary sx's of nocturia 2-4 times and urinary frequency every 2 hours during the day. He states that he does not strain to void. He underwent a prep for colonoscopy and then colonoscopy. Following that he a 4 syncopal episodes, 3 of which were associated with trying to voiding. He has not had any further episodes in the hospital. His last pvr was 245 cc Allergies/Medications Allergies: Coded Allergies: Penicillins (Severe, ANAPHYLAXIS 05/31/17) Sulfa (Sulfonamide Antibiotics) (Severe, chest pain 05/31/17) procaine (Severe, ANAPHYLAXIS 05/31/17) clarithromycin (From BIAXIN) (Intermediate, COUGHING/GI upset 05/31/17) after he had paralysis of right side of diahragm levofloxacin (From LEVAQUIN) (Intermediate, ANAPHYLAXIS 05/31/17) prochlorperazine (From COMPAZINE) (ANAPHYLAXIS 05/31/17) Home Med List: Aspirin (Ecotrin*) 81 MG TABLET.DR 1 TAB PO DAILY HEART HEALTH (Reported) Biotin 1,000 MCG TAB.CHEW 1,000 MCG PO DAILY VITAMIN SUPPORT (Reported) Calcitriol 0.25 MCG CAPSULE 1 CAP PO DAILY VITAMIN SUPPORT (Reported) Esomeprazole (Nexium) 40 MG CAPSULE.DR 1 CAP PO DAILY ACID REFLUX (Reported) Finasteride 5 MG TABLET 1 TAB PO DAILY BLADDER HEALTH (Reported) Moexipril HCl 7.5 MG TABLET HIGH BLOOD PRESSURE (Reported) Psyllium Husk (Metamucil) (Unknown Strength) CAPSULE (Unknown Dose) BOWEL HEALTH (Reported) Rosuvastatin Calcium (Crestor) 10 MG TABLET 1 TAB PO DAILY HIGH CHOLESTROL ( Reported) Tamsulosin HCl 0.4 MG CAP.ER.24H 1 CAP PO DAILY BLADDER HEALTH (Reported) Ubidecarenone (Co Q-10) 100 MG CAPSULE 100 MG PO DAILY VITAMIN SUPPORT ( Reported) Current Medications: Current Medications Sig/Seth Start time Last Medication Dose Route Stop Time Status Admin Acetaminophen 500 MG Q6P PRN 05/31 2330 AC 06/01 PO 0751 Aspirin Buffered 81 MG DAILY 06/01 1000 AC PO Atorvastatin Calcium 10 MG 1700 05/31 1700 DC PO Finasteride 5 MG DAILY 06/01 1000 AC 06/01 PO 0930 Heparin Sodium 5,000 UNIT Q8 06/01 2200 AC 06/02 (Porcine) SC 0626 Pantoprazole Sodium 40 MG DAILY 06/01 1000 AC 06/01 IV 0930 Rosuvastatin Calcium 10 MG 1700 06/01 1830 AC 06/01 PO 2117 Tamsulosin HCl 0.4 MG DAILY 06/01 1000 AC 06/01 PO 0930 Past History Medical History Neurological: NONE EENT: macular degeneration Cardiovascular: hypertension, hyperlipidemia Respiratory: NONE Gastrointestinal: GERD Hepatic: NONE Renal: STAGE 3 RENAL DISEASE Musculoskeletal: falls, osteoarthritis Psychiatric: NONE Endocrine: NONE Blood Disorders: NONE Cancer(s): NONE Surgical History Pertinent Surgical History: non-contributory Family History Relations & Conditions If Any: MOTHER ( of renal cancer). FATHER ( of [place]). Psychosocial History Smoking Status: Former Smoker ETOH Use: denies use Illicit Drug Use: denies illicit drug use Exam & Diagnostic Data Vital Signs and I&O Vital Signs Date Time Temp Pulse Resp B/P B/P Pulse O2 O2 Flow FiO2 Mean Ox Delivery Rate 06/02 0740 99.2 74 20 134/68 94 Room Air 06/01 2252 97.9 72 20 118/62 96 Room Air 06/01 1407 97.8 70 18 130/52 99 Room Air 06/01 0930 98.3 77 18 138/68 Intake & Output 06/02 0800 06/02 0000 06/01 1600 06/01 0800 06/01 0000 05/31 1600 Intake Total 110 400 720 709 840 3277 Output Total 650 275 575 675 250 300 Balance -540 125 145 -555 -10 900 Intake, IV 10 1000 Intake, Oral 100 400 720 120 240 200 Number 0 1 0 0 Bowel Movements Output, Urine 650 275 575 675 250 300 Patient 174 lb 173 lb 177 lb 176 lb Weight Weight Bed scale Bed scale Measurement Method No acute distress. Sitting up in bed eating breakfast Abd: soft and non tender Laboratory Tests 06/02 0617 Chemistry Sodium Pending Potassium Pending Chloride Pending Carbon Dioxide Pending Anion Gap Pending BUN Pending Creatinine Pending BUN/Creatinine Ratio Pending Calcium Pending CT scan: mild to moderate prostatic enlargement. ? some stone gravel in bladder Assessment/Plan Assessment/Plan Imp: 1. ? micturition sycope, likely related to dehydration from colonoscopy prep. Dehydration is main risk factor for this 2. BPH Plan: 1. Patient should remain well hydrated 2. Sit to void at least for the next few days and until the syncopal episodes have resolved 3. Continue tamsulosin and finasteride for now. If syncopal episodes continue then stop tamsulosin 4. No need for str cath with pvr of 245 cc 5. Patient was invited to f/u in our office after discharge if he wishes to do so Consult Acknowledgment - Thank you for your consult request.
[2017-06-02 08:10] VITALS: BP 134/68
--- NOTE | 2017-06-02 10:59 | Patient Discharge Instructions ---
Discharge Instructions General Discharge Information You were seen/treated for: Syncope Special Instructions: Please follow up with your PCP within one week. When you are voiding (urinating), we encourage you to remain seated. If your symptoms persist, please call you PCP, your medications will likely be adjusted. Diet Recommended Diet: Heart Healthy Acute Coronary Syndrome Inclusion Criteria At DC or during hospital stay patient has or had the following: ACS DIAGNOSIS No Discharge Core Measures Meds if any: Prescribed or Continued at Discharge Meds if any: NOT Prescribed or Continued at Discharge Congestive Heart Failure Inclusion Criteria At DC or during hospital stay patient has or had the following: CHF DIAGNOSIS No Discharge Core Measures Meds if any: Prescribed or Continued at Discharge Meds if any: NOT Prescribed or Continued at Discharge Cerebrovascular accident Inclusion Criteria At DC or during hospital stay patient has or had the following: CVA/TIA Diagnosis No Discharge Core Measures Meds if any: Prescribed or Continued at Discharge Meds if any: NOT Prescribed or Continued at Discharge Venous thromboembolism Inclusion Criteria VTE Diagnosis No VTE Type NONE VTE Confirmed by (Test) NONE Discharge Core Measures - Per Current guidelines, there needs to be overlap - treatment for the first 5 days of Warfarin therapy. - If discharged on Warfarin prior to 5 days of - overlap therapy, the patient will need to be - assessed for post discharge needs including - *Post discharge parental anticoagulation - *Warfarin and/or parental anticoagulation education - *Follow up date to check INR post discharge At least 5 days overlap therapy as Inpatient No Meds if any: Prescribed or Continued at Discharge Note: Overlap Therapy is Warfarin and Anticoagulant Meds if any: NOT Prescribed or Continued at Discharge
--- NOTE | 2017-06-02 12:07 | PN- Att Addend ---
Attending Addendum Attending Brief Note Patient seen and examined. Plan of care discussed with the medical team and the patient. Available lab work and radiology test reports were reviewed. patient denies any further dizziness or syncope. He is currently awake alert oriented without any distress. Denies any chest pain difficult breathing fever chills nausea vomiting diarrhea. Exam: General: Patient awake alert oriented without any distress CVS: S1 plus S2 without any murmur or gallops Chest: Few scattered crepitation without any wheeze. There is no respiratory distress. Abdomen: Soft non-tender, bowel sound present, no guarding or rebound ARBORIST CLIMBER: Awake alert oriented without any focal neuro deficit and follows commands appropriately Extremities: No edema; no clubbing or cyanosis noted Assessment * Multiple episodes of syncope with loss of consciousness- deferential included vasovagal syncope, seizure disorder, stroke and arrhythmia; no evidence of seizures or stroke and no arrhythmia has been noticed. 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 Note reviewed. Continue Flomax and finasteride * Plan to discharge home today * Patient to follow with Dr. Sanchez * No Calcitrol upon discharge Current Medications Sig/Seth Start time Last Medication Dose Route Stop Time Status Admin Acetaminophen 500 MG Q6P PRN 05/31 2330 AC 06/01 PO 0751 Aspirin Buffered 81 MG DAILY 06/01 1000 AC PO Atorvastatin Calcium 10 MG 1700 05/31 1700 DC PO Finasteride 5 MG DAILY 06/01 1000 AC 06/02 PO 0810 Heparin Sodium 5,000 UNIT Q8 06/01 2200 AC 06/02 (Porcine) SC 0626 Pantoprazole Sodium 40 MG DAILY 06/01 1000 AC 06/02 IV 0810 Rosuvastatin Calcium 10 MG 1700 06/01 1830 AC 06/01 PO 2117 Tamsulosin HCl 0.4 MG DAILY 06/01 1000 AC 06/02 PO 0810 Laboratory Tests 06/02/17 0617: Anion Gap 13, Estimated GFR 36 L, BUN/Creatinine Ratio 19.4, Calcium 9.6 06/01/17 0620: Anion Gap 11, Estimated GFR 34 L, BUN/Creatinine Ratio 17.4, Calcium 10.1, Prolactin 13.0, CBC w Diff NO MAN DIFF REQ, RBC 3.55 L, MCV 89.3, MCH 30.0, MCHC 33.6, RDW 14.4, MPV 8.7, Gran % 63.5, Lymphocytes % 21.7, Monocytes % 8.1, Eosinophils % 6.2 H, Basophils % 0.5, Absolute Granulocytes 4.2, Absolute Lymphocytes 1.4, Absolute Monocytes 0.5, Absolute Eosinophils 0.4, Absolute Basophils 0 05/31/17 1402: Urine Color YEL, Urine Clarity CLEAR, Urine pH 6.0, Ur Specific [place] 1.010, Urine Protein NEG, Urine Ketones NEG, Urine Nitrite NEG, Urine Bilirubin NEG, Urine Urobilinogen 0.2, Ur Leukocyte Esterase NEG, Ur Microscopic EXAM NOT REQUIRED, Urine Hemoglobin NEG, Urine Glucose NEG 05/31/17 0916: Lactic Acid Cancelled 05/31/17 0616: Lactic Acid Cancelled 05/31/17 0439: Anion Gap 13, Estimated GFR 26 L, BUN/Creatinine Ratio 17.9, Glucose 115 H, Hemoglobin A1c 6.4 H, Lactic Acid 0.9, Calcium 11.3 H, Magnesium 1.6, Total Bilirubin 0.5, AST 11 L, ALT 24, Alkaline Phosphatase 37, Troponin I < 0.01, Total Protein 6.1 L, Albumin 3.8, Globulin 2.3, Albumin/Globulin Ratio 1.7, PTH Intact 6.9 L, CBC w Diff NO MAN DIFF REQ, RBC 3.89 L, MCV 89.1, MCH 29.7, MCHC 33.3, RDW 14.4, MPV 8.1, Gran % 64.0, Lymphocytes % 25.7, Monocytes % 6.5, Eosinophils % 3.4, Basophils % 0.4, Absolute Granulocytes 5.0, Absolute Lymphocytes 2.0, Absolute Monocytes 0.5, Absolute Eosinophils 0.3, Absolute Basophils 0 Vital Signs Date Time Temp Pulse Resp B/P B/P Pulse O2 O2 Flow FiO2 Mean Ox Delivery Rate 06/02 0810 74 134/68 06/02 0740 99.2 74 20 134/68 94 Room Air 06/01 2252 97.9 72 20 118/62 96 Room Air 06/01 1407 97.8 70 18 130/52 99 Room Air Intake & Output 06/02 1600 06/02 0800 03/ 0000 Intake Total 110 400 Output Total 650 275 Balance -540 125 Intake, IV 10 Intake, Oral 100 400 Number 0 Bowel Movements Output, Urine 650 275 Patient 174 lb Weight Total time spent in preparation for discharge plan, patient education, and CMR preparation was 35 minutes.
--- NOTE | 2017-06-02 14:09 | Discharge Summary ---
Visit Information Visit Dates Admission Date: 05/31/17 Discharge Date: 06/02/16 Hospital Course Course Attending Physician: Andres NGUYỄN,Yennifer Primary Care Physician: Den NGUYỄN,Arsenio Curtis Consulting Request: Consulting Specialty: Urology Consulting Physician: Reason for Consult: Micturition syncope Hospital Course: Patient is a 86 YO M with PMH significant for HTN, HLD, BPH, GERD, DM (not on medications), Stage 3 CKD, Right-sided diaphragmatic paralysis, Bilateral macular degeneration -left-sided wet, right-sided dry, diverticulitis presented to [facility] with recurrent syncopal episodes after recent colonoscopy. Admitted to telemetry floor yesterday Plan Recurrent/Micturation Syncope Possibly micturiation related vasovagal in the setting of preload dependence (likley due to dehydraion in the setting of colonoscopy prep) with abdominal straining. Orthostatic vitals were negative. Consutled urology, advised to sit during urination. We will continue tamsulosin/finasteride for now. Needs cardiology follow up in near furture in the setting of with syncope. He benefits further outpatient urological follow up. Hypercalcemia with DAGO Calcium on presentation 11.3, calcium prior to discharge: 9.6. Improved with hydration, PTH decreased <10. Considering secondary to high doses of calcium. Recommended to discontinue calcium and deferred to outpatient PCP for further recommendations. Other home medications were continued. DVT prophylaxis SC heparin Code status full code Complications: NONE Allergies: Coded Allergies: Penicillins (Severe, ANAPHYLAXIS 05/31/17) Sulfa (Sulfonamide Antibiotics) (Severe, chest pain 05/31/17) procaine (Severe, ANAPHYLAXIS 05/31/17) clarithromycin (From BIAXIN) (Intermediate, COUGHING/GI upset 05/31/17) after he had paralysis of right side of diahragm levofloxacin (From LEVAQUIN) (Intermediate, ANAPHYLAXIS 05/31/17) prochlorperazine (From COMPAZINE) (ANAPHYLAXIS 05/31/17) Significant Procedures: SERVICE DATE: 05/31/17- EXAM TYPE: MRI - MRI-HEAD W/O GIA IMPRESSION: There are scattered chronic small vessel ischemic changes within the periventricular white matter. No evidence of acute territorial infarct or hemorrhage. SERVICE DATE: 05/31/17-425 EXAM TYPE: CAT - CT CERV SPINE WO IV CONTRAST; CT HEAD WO IV CONTRAST IMPRESSION: No evidence for acute intracranial injury. Age-appropriate appearance of the brain. Paranasal sinus disease as stated above. No evidence for acute injury to the cervical spine. SERVICE DATE: 05/31/17 EXAM TYPE: RAD - XRY-PORTABLE CHEST XRAY IMPRESSION: No consolidations. Mild atelectasis at the right lung base. 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 Mild pericolonic fat stranding in the region of the proximal to mid sigmoid colon without definite abnormal wall thickening noted. Findings could represent changes of early acute diverticulitis/colitis. Clinical correlation is suggested. No free air or fluid in the abdomen or pelvis. Filling defect in the C portion of the duodenum could represent polyp. Clinical correlation is suggested. Small calcific densities in the urinary bladder could represent urinary stones. This can be further evaluated by ultrasound of the full bladder if clinically indicated. DICTATED BY: Osito Banerjee MD Pertinent Lab Results: as above Disposition Summary Disposition Principal Diagnosis: Recurrent syncopal episodes Additional Diagnosis: BPH Discharge Disposition: home or self care Discharge Instructions General Discharge Information Code Status: Full Code Patient's Diet: heart healthy diet Patient's Activity: as tolerated. Requested to urinate while sitting for the next few days Follow-Up Instructions/Appts: Please follow up with your PCP within one week. When you are voiding (urinating), we encourage you to remain seated. If your symptoms persist, please call you PCP, your medications will likely be adjusted. Medications at Discharge Discharge Medications: Stop taking the following medications: Calcitriol (Calcitriol) 0.25 MCG CAPSULE ORAL DAILY Continue taking these medications: Esomeprazole (Nexium) 40 MG CAPSULE. 1 Capsule ORAL DAILY Comments: Last Taken: 06/02/17 Time: 0810 AM GIVEN IV PROTONIX IN HOSPITAL. Rosuvastatin Calcium (Crestor) 10 MG TABLET 1 Tablet ORAL DAILY Comments: Last Taken: 06/01/17 Time: 9 PM Moexipril HCl (Moexipril HCl) 7.5 MG TABLET 1 Tablet ORAL DAILY Comments: NOT GIVEN IN HOSPITAL. Finasteride (Finasteride) 5 MG TABLET 1 Tablet ORAL DAILY Comments: Last Taken: 06/02/17 Time: 0810 AM Tamsulosin HCl (Tamsulosin HCl) 0.4 MG CAP.ER.24H 1 Capsule ORAL DAILY Comments: Last Taken: 06/02/17 Time: 0810 AM Ubidecarenone (Co Q-10) 100 MG CAPSULE 100 Milligram ORAL DAILY Comments: NOT GIVEN IN HOSPITAL. Aspirin (Ecotrin*) 81 MG TABLET.DR 1 Tablet ORAL DAILY Comments: NOT GIVEN IN HOSPITAL. RESTART ON Wednesday06/05/17. Biotin (Biotin) 1,000 MCG TAB.CHEW 1,000 Microgram ORAL DAILY Comments: NOT GIVEN IN HOSPITAL. Psyllium Husk (Metamucil) (Unknown Strength) CAPSULE 8 Ounce(30ml) ORAL DAILY as needed for Consipation Comments: NOT GIVEN IN HOSPITAL. Copies To: Daniel NGUYỄN,Arsenio Curtis; Den NGUYỄN,Arsenio Curtis Attending MD Review Statement Documenting Attending: Andres NGUYỄN,Yennifer
== END 2017-06-02 14:40 | DRG 683 ==
LOC: ERH 04:16 → ERHI 11:37 → ENRESERV 13:27 → 1NO 13:51 → ERHI 13:51 → ENTRNSPT 13:59 → EDTRNSPT 14:09 → EDTRNSPTSTS 14:09 → ERHI 14:16 → 1NO 14:18 → CMPTRNSPT 14:28 → ENPENDDIS 06-02 13:24 → ENTRNSPT 06-02 14:26 → EDTRNSPT 06-02 14:36 → EDTRNSPTSTS 06-02 14:36 → 1NO 06-02 14:40 → CMPTRNSPT 06-02 14:52
PROVIDERS: Emergency Medicine; Internal Medicine Adolescent Medicine
DX: N17.9 Acute kidney failure, unspecified (principal); K57.92 Diverticulitis of intestine, part unspecified, without perforation or abscess without bleeding; E11.21 Type 2 diabetes mellitus with diabetic nephropathy; E86.0 Dehydration; E83.52 Hypercalcemia; R55 Syncope and collapse; N18.3 Chronic kidney disease, stage 3 (moderate); W18.30XA Fall on same level, unspecified, initial encounter; Z91.81 History of falling; I12.9 Hypertensive chronic kidney disease with stage 1 through stage 4 chronic kidney disease, or unspecified chronic kidney disease; N40.0 Benign prostatic hyperplasia without lower urinary tract symptoms; H35.3220 Exudative age-related macular degeneration, left eye, stage unspecified; H35.3110 Nonexudative age-related macular degeneration, right eye, stage unspecified; E78.5 Hyperlipidemia, unspecified; Z87.891 Personal history of nicotine dependence; Z96.653 Presence of artificial knee joint, bilateral; Z90.49 Acquired absence of other specified parts of digestive tract; Z88.0 Allergy status to penicillin; Z88.2 Allergy status to sulfonamides; Z88.8 Allergy status to other drugs, medicaments and biological substances; Z79.82 Long term (current) use of aspirin; K21.9 Gastro-esophageal reflux disease without esophagitis; W17.89XA Other fall from one level to another, initial encounter; Y92.002 Bathroom of unspecified non-institutional (private) residence as the place of occurrence of the external cause; E11.22 Type 2 diabetes mellitus with diabetic chronic kidney disease
CPT/HCPCS: 1NSP; 70551; 36592; 71045; 74176; 81003; 82436; 93005; 93010; 96361; 96374; J0131; J1644